=== PATIENT | female | born 2000 | race Caucasian/White ===

== ENCOUNTER 2023-03-07 09:48 | Emergency (ER) | payer BC ==
[~2023-03-07] VITALS: Ht 154.9 cm; Wt 85.7 kg
[2023-03-07 09:55] VITALS: BP_SYST 121
[2023-03-07 10:29] LABS: BASOPHILS # (AUTO) 0.1 K/uL (0.0-0.2); EOSINOPHILS # (AUTO) 0.1 K/uL (0.0-0.4); EOSINOPHILS % (AUTO) 1.8 % (0.0-4.0); HEMATOCRIT 42.7 % (36-48); HEMOGLOBIN 14.4 g/dL (12.0-16.0); LYMPHOCYTES # (AUTO) 2.1 K/uL (1.0-5.5); LYMPHOCYTES % (AUTO) 33.4 % (20.5-51.5); MEAN CORPUSCULAR HEMOGLOBIN 30 pg (27-31); MEAN CORPUSCULAR HGB CONC 34 % (32-36); MEAN CORPUSCULAR VOLUME 88 fL (79.0-98.0); MONOCYTES # (AUTO) 0.4 K/uL (0.0-1.0); MONOCYTES % (AUTO) 6.7 % (1.7-9.3); NEUTROPHILS # (AUTO) 3.6 K/uL (1.8-7.7); NEUTROPHILS % (AUTO) 57.1 % (40.0-70.0); PLATELET COUNT (AUTO) 367 K/uL (130-430); RED BLOOD CELL COUNT(AUTO) 4.87 MIL/uL (4.2-6.2); RED CELL DISTRIBUTION WIDTH 12.5 % (9.0-15.0); WHITE BLOOD COUNT (AUTO) 6.3 K/uL (4.5-11.0)
[2023-03-07 10:45] LABS: BILIRUBIN,URINE NEGATIVE (NEGATIVE); CLARITY/URINE CLEAR (CLEAR); COLOR,URINE YELLOW (YELLOW); GLUCOSE,URINE NEGATIVE (NEGATIVE); KETONES,URINE NEGATIVE (NEGATIVE); LEUKOCYTE ESTERASE ,URINE NEGATIVE (NEGATIVE); NITRITE, URINE NEGATIVE (NEGATIVE); PROTEIN URINE NEGATIVE (NEGATIVE); UROBILINOGEN,URINE 0.2 (0.2-1.0)
[2023-03-07 10:46] LABS: ANION GAP 7 (5-15); CALCIUM 8.9 mg/dL (8.4-11.0); CHLORIDE 106 mmol/L (98-107); CREATININE 0.84 mg/dL (0.55-1.30); GFR AFRICAN AMERICAN 111 mL/min (>90); GLUCOSE 94 mg/dL (70-99); UREA NITROGEN, BLOOD 9 mg/dL (8-21)
[2023-03-07 10:47] LABS: ALANINE AMINOTRANSFERASE 72 U/L (12-78); AMYLASE 48 U/L (0-100); ASPARTATE AMINOTRANSFERASE 27 U/L (10-37); C-REACTIVE PROTEIN QUANT < 0.2 mg/dL (0-0.5); LIPASE 140 U/L (73-393); TOTAL BILIRUBIN 0.5 mg/dL (0.0-1.0)
[2023-03-07 10:48] LABS: BLOOD, URINE TRACE (NEGATIVE)
[2023-03-07 10:57] LABS: BACTERIA,URINE None Seen /HPF (None Seen); RBC,URINE 0-3 /HPF (0-3); WBC,URINE NONE SEEN /HPF (0-3)
[2023-03-07] MEDS ORDERED: IBUP-1969 PO (13:09)
[2023-03-07] MEDS ORDERED: TRAM50TA2 PO (13:09)
[2023-03-07 13:39] VITALS: BP_SYST 121
== END 2023-03-07 15:28 | disposition home or self-care (01) ==
LOC: SED 09:48
DX: R10.12 Left upper quadrant pain (principal)
CPT/HCPCS: 36415; 76376; 80053; 81000; 81025; 82150; 83605; 83690; 84703; 85025; 86140; 99284